=== PATIENT | female | born 1985 | race African-American/Black ===

== ENCOUNTER 2016-10-05 16:32 | Emergency (ER) | payer OTHER ==
--- NOTE | ~2016-10-05 | CR63 ---
[facility] A Service of [facility] & [facility] RADIOLOGY TEXT RESULTS PATIENT: URIEL BANERJEE LOCATION: CFTX : 81 UNIT #: [id number] AGE: [address]: Yoly Grijalva APRN SEX: F ORDER DR: [id number] [facility] [address] [place], [place] [address] [id number] E MR#: [id number] Acc #: [id number] NAME: URIEL BANERJEE : 1985 SEX: F STUDY DATE/TIME: 10/05/2016 15:39 UNIT: [facility]NE ROOM: STUDY DESCRIPTION: CR Chest 2 View Attending Physician: Yoly Grijalva A.P.R.N. Ordering Physician: Ed Doctor [id number] [facility] Primary Care Physician: [facility], [facility] MEDICAL IMAGING REPORT This report is preliminary unless electronic signature is present EXAM Chest PA and lateral HISTORY Cough, shortness of breath, upper chest pain for the 2 days TECHNIQUE PA and lateral views are obtained. The studies compared directly to 10/27/15. FINDINGS Heart size in the patient is stable. Vascular pattern is normal and the lungs remain clear. CONCLUSION Stable chest. No active disease. Dictated by... Roman Matthews M.D. THIS IS AN ELECTRONICALLY VERIFIED REPORT Roman Matthews M.D. at 10/06/2016 10:35 AM Lewis TD: 10/05/2016 20:57 JOB #: [id number] MEDICAL IMAGING REPORT Page 1 of 1 COPY
[~2016-10-05 16:32] MED LIST: AMOXICILLIN875 MG PO; CIPRO PO; DEBROX15 M1 OT; FLONASE16 GM; IBUPROFEN PO; IBUPROFEN800 MG PO; K-DUR20 ME2 DOB; PRILOSEC PO; PRILOSEC20 M1 PO; PROVENTIL17 GM IH; ZITHROMAX PO; [UNRECOGNIZED DRUG - OTHER]
== END 2016-10-05 16:37 | disposition home or self-care (01) ==
LOC: CFTX 16:32
DX: S00.03XA Contusion of scalp, initial encounter (principal); F32.9 Major depressive disorder, single episode, unspecified; J30.2 Other seasonal allergic rhinitis; F17.210 Nicotine dependence, cigarettes, uncomplicated; Z88.0 Allergy status to penicillin; Z88.8 Allergy status to other drugs, medicaments and biological substances; X58.XXXA Exposure to other specified factors, initial encounter; Y92.098 Other place in other non-institutional residence as the place of occurrence of the external cause
CPT/HCPCS: 71020; 94640; 99283